=== PATIENT | female | born 1945 | race Two or more races ===

== ENCOUNTER 2022-08-29 09:15 | Inpatient (IN) | payer OTHER ==
[~2022-08-29] VITALS: Ht 144.8 cm; Wt 55.3 kg
[2022-08-29] MEDS ORDERED: ARICEPT10 MG PO (14:42)
[2022-08-29] MEDS ORDERED: DICLOFENAC SOD100 GM TOP (14:42)
[2022-08-29] MEDS ORDERED: FERROCITE324 MG PO (14:43)
[2022-08-29] MEDS ORDERED: ACIDOPHILUS1 EAC3 PO (14:43)
[2022-08-29] MEDS ORDERED: SYMBICORT 16010.2 GM IH (14:46)
[2022-08-29] MEDS ORDERED: SEPTRA DS OPHT (14:46)
[2022-08-29] MEDS ORDERED: IRBESARTAN75 MG PO (14:47)
[2022-09-07] MEDS ORDERED: FERROUS SULFAT325 M1 (13:14)
[2022-09-07] MEDS ORDERED: ISOSORBIDE DINI30 MG (13:14)
[2022-09-07] MEDS ORDERED: FOLIC ACID1 MG (13:14)
[2022-09-07] MEDS ORDERED: OMEPRAZOLE40 MG (13:14)
[2022-09-07] MEDS ORDERED: GLIMEPIRIDE4 M1 (13:14)
[2022-09-07] MEDS ORDERED: DIGOXIN125 MCG (13:14)
[2022-09-07] MEDS ORDERED: FAMOTIDINE20 MG (13:14)
[2022-09-07] MEDS ORDERED: SIMVASTATIN20 MG (13:14)
[2022-09-07] MEDS ORDERED: HYDROCORTISO453.6 G1 (13:14)
[2022-09-07] MEDS ORDERED: PENTOXIFYLLINE400 MG (13:14)
[2022-09-07] MEDS ORDERED: ARTHRITIS PAIN650 MG (13:14)
[2022-09-07] MEDS ORDERED: LOSARTAN POTAS100 MG (13:14)
[2022-09-07] MEDS ORDERED: METFORMIN HCL1000 M3 (13:14)
[2022-09-12] MEDS ORDERED: ACETAMINOPHEN500 M2 PO (08:12)
[2022-09-12] MEDS ORDERED: INTEGRA F CAPS1 EACH PO (08:12)
== END 2022-09-12 12:12 | disposition home or self-care (01) | DRG 330 ==
LOC: SURH 09-04 09:15 → O/R 09-07 06:17 → SURH 09-07 06:17
PROVIDERS: ADMIT Surgery; ATTEND Surgery
PROC: 0DBP4ZZ Excision of Rectum, Percutaneous Endoscopic Approach (ICD-10-PCS; 2022-09-07)
PROC: 07BC4ZZ Excision of Pelvis Lymphatic, Percutaneous Endoscopic Approach (ICD-10-PCS; 2022-09-07)
PROC: 0DJD8ZZ Inspection of Lower Intestinal Tract, Via Natural or Artificial Opening Endoscopic (ICD-10-PCS; 2022-09-07)
PROC: 4A12X4Z Monitoring of Cardiac Electrical Activity, External Approach (ICD-10-PCS; 2022-09-07)
PROC: 0DTN4ZZ Resection of Sigmoid Colon, Percutaneous Endoscopic Approach (ICD-10-PCS; principal; 2022-09-07 11:30)
DX: C19 Malignant neoplasm of rectosigmoid junction (principal); F02.811 Dementia in other diseases classified elsewhere, unspecified severity, with agitation; K56.50 Intestinal adhesions [bands], unspecified as to partial versus complete obstruction; K62.5 Hemorrhage of anus and rectum; F05 Delirium due to known physiological condition; R59.0 Localized enlarged lymph nodes; K59.09 Other constipation; I11.9 Hypertensive heart disease without heart failure; G30.1 Alzheimer's disease with late onset; R00.1 Bradycardia, unspecified; F43.20 Adjustment disorder, unspecified